=== PATIENT | female | born 1955 | race Caucasian/White ===

== ENCOUNTER → 2018-09-04 17:51 | Emergency (ER) | payer MEDICARE, MEDICAID ==
[~2018-09-04 17:51] MED LIST: Ketorolac INJ* 30 MG/ML 1 ML VIAL IV PUSH ONE; Morphine 4 MG/ML VIAL (1 ml) 4 MG/ML VIAL IV ONE; NS 0.9% 1000 ML** 1,000 ML IV ONE; Ondansetron INJ* 2 MG/ML VIAL IV ONE
--- NOTE | 2018-09-04 19:19 | ED ---
Abdominal Pain/Female - HPI Summary HPI Summary: The patient is a 62 y/o F presenting to [facility] with a chief complaint of gradual onset right-sided abd pain that started three days ago but worsened today. She reports that she has been trying home treatments, and when the pain worsened today, she was goign to go to her PCP. However, the pain was so severe that she had difficulty moving because movement has aggravated the pain more than at rest , where the severity will go from 3/10 to 8/10. The sharp pain is located primarily in the right flank, but it also radiates to the right low back. The back pain started today. She denies nausea and vomiting. She denies trauma. No abd hx. Current light everyday smoker, occasional EtOH., no substance use. - History of Current Complaint Chief Complaint: Radha Stated Complaint: "RIGHT SIDED RIB PAIN PER PT" Time Seen by Provider: 09/04/18 18:58 Hx Obtained From: Patient ?: No Onset/Duration: Gradual Onset, Lasting Days - three, Worse Since - today Timing: Days Severity Initially: Mild Severity Currently: Moderate Pain Intensity: 8 Pain Scale Used: 0-10 Numeric Location: Flank - right Radiates: Yes Radiates to: Back - right low Character: Sharp Aggravating Factor(s): Movement Alleviating Factor(s): Other: - rest Associated Signs and Symptoms: Positive: Back Pain - low right. Negative: Nausea, Vomiting Allergies/Adverse Reactions: Allergies Allergy/AdvReac Type Severity Reaction Status Date / Time No Known Allergies Allergy Verified 09/04/18 17:56 Home Medications: Home Medications Methylphenidate TAB* 10 mg PO DAILY 09/04/18 [History Confirmed 09/04/18] PARoxetine HCL TAB* 5 mg PO DAILY 09/04/18 [History Confirmed 09/04/18] PMH/Surg Hx/FS Hx/Imm Hx Endocrine/Hematology History: Denies: Hx Diabetes Cardiovascular History: Reports: Hx Angina - when having physical and psychological stress. Denies: Hx Hypercholesterolemia, Hx Hypertension, Hx Myocardial Infarction, Hx Pacemaker/ICD, Hx Valvular Heart Disease Respiratory History: Reports: Hx Pneumonia Denies: Hx Asthma, Hx Chronic Obstructive Pulmonary Disease (COPD) Musculoskeletal History: Reports: Hx Arthritis, Hx Back Problems, Other Musculoskeletal History - rotator cuff Denies: Hx Rheumatoid Arthritis, Hx Fibromyalgia, Hx Gout, Hx Osteoporosis Sensory History: Reports: Hx Contacts or Glasses Denies: Hx Glaucoma, Hx Macular Degeneration, Hx Hearing Aid Opthamlomology History: Reports: Hx Contacts or Glasses Denies: Hx Glaucoma, Hx Macular Degeneration Psychiatric History: Reports: Hx Anxiety, Hx Depression, Hx Post Traumatic Stress Disorder, Hx Inpatient Treatment, Hx Suicide Attempt Denies: Hx Eating Disorder, Hx Panic Disorder, Hx of Violent Episodes Against Others - Surgical History Surgery Procedure, Year, and Place: BILATERAL SHOULDER SURGERY,TUBAL, herniated disc repair 7 years ago Hx Anesthesia Reactions: No Infectious Disease History: No Infectious Disease History: Denies: Hx Clostridium Difficile, Hx Hepatitis, Hx Human Immunodeficiency Virus (HIV), Hx Shingles, Hx Tuberculosis, Traveled Outside the [place] in Last 30 Days - Family History Known Family History: Negative: Hypertension, Diabetes - Social History Lives: With Family Alcohol Use: Occasionally Hx Substance Use: No Substance Use Type: Reports: None Hx Tobacco Use: Yes Smoking Status (MU): Light Every Day Tobacco Smoker Type: Cigarettes Do You Chew or Dip Tobacco: No Have You Chewed or Dipped Tobacco in the LAST YEAR: No Have You Smoked in the Last Year: No Review of Systems Negative: Vomiting, Nausea Positive: flank pain - right Positive: Other - right low back pain radiating from abd All Other Systems Reviewed And Are Negative: Yes Physical Exam - Summary Physical Exam Summary: VITAL SIGNS: Reviewed. GENERAL: Patient is a well-developed and nourished female who is lying comfortable in the stretcher. Patient is not in any acute respiratory distress. HEAD AND FACE: Normocephalic and atraumatic. EYES: PERRLA, EOMI x 2, No injected conjunctiva. EARS: Hearing grossly intact. Ear canals and tympanic membranes are WNL. MOUTH: Oropharynx within normal limits. NECK: Supple, trachea is midline, no adenopathy, no JVD. CHEST: Symmetric, no tenderness at palpation LUNGS: Clear to auscultation bilaterally. No wheezing or crackles. CVS: RRR, S1 and S2 present, no murmurs or gallops appreciated. ABDOMEN: Soft, right flank pain and right costovertebral tenderness. No signs of distention. Positive bowel sounds. No rebound no guarding, and no masses palpated. No abdominal bruit or pulsations. EXTREMITIES: FROM in all major joints, no edema, no cyanosis or clubbing. NEURO: Alert and oriented x 3. No acute neurological deficits. Speech is normal. SKIN: Dry and warm. Triage Information Reviewed: Yes Vital Signs On Initial Exam: Initial Vitals Temp Pulse Resp BP Pulse Ox 98 F 74 18 104/70 98 09/04/18 17:53 09/04/18 17:53 09/04/18 17:53 09/04/18 17:53 09/04/18 17:53 Vital Signs Reviewed: Yes Diagnostics - Vital Signs Vital Signs Temp Pulse Resp BP Pulse Ox 09/04/18 17:53 98 F 74 18 104/70 98 - Laboratory Result Diagrams: 09/04/18 19:19 09/04/18 19:19 Lab Statement: Any lab studies that have been ordered have been reviewed, and results considered in the medical decision making process. - CT Abd/Pel CT CT Interpretation Completed By: Radiologist Summary of CT Findings: No acute abnormality. ED physician has reviewed this report. - EKG 19:13 Cardiac Rate: Bradycardia - 58 BPM EKG Rhythm: Sinus Bradycardia EKG Comparison: No Significant Change - Similar to EKG taken on 10/10/2012 Summary of EKG Findings: No ST elevations Re-Evaluation - Re-Evaluation First Eval Re-Evaluation Time: 21:20 Change: Improved Comment: The patient's pain has improved. We discussed results and discharge home. Abdominal Pain Fem Course/Dx - Course Course Of Treatment: The patient is a 62 y/o F presenting to [facility] with a chief complaint of gradual onset right-sided abd pain that started three days ago but worsened today. She reports that she has been trying home treatments, and when the pain worsened today, she was going to go to her PCP. However, the pain was so severe that she had difficulty moving because movement has aggravated the pain more than at rest, where the severity will go from 3/10 to 8/10. The sharp pain is located primarily in the right flank, but it also radiates to the right low back. The back pain started today. She denies nausea and vomiting. She denies trauma. No abd hx. Current light everyday smoker, occasional EtOH., no substance use. Blood test results without any significant abnormality. In the ED course, the patient has significant pain therefore she was given IV fluids, Zofran for nausea, and morphine for pain. Abdominopelvic CT impression: No acute intra-abdominal pathology. In the ED course the patient was given additional dose of morphine and Toradol. After these medications, the patients symptoms have significantly improved. I discussed all the findings and test results with the patient. Patient was instructed to return to the emergency room immediately if any of the symptoms return worsens. Plan of care was discussed with the patient and understands and agrees. All questions were answered at patient satisfaction. There were no further complaints or concerns. Lung exam before discharge: CTA B/L. Good air exchange. No wheezing or crackles heard. CVS: S1 and S2 present. No murmurs appreciated. Patient is alert and oriented x 3. Patient is hemodynamically stable. Patient will be discharged home with follow up PCP in the next 2-3 days. - Diagnoses Provider Diagnoses: Flank pain Discharge - Sign-Out/Discharge Documenting (check all that apply): Patient Departure - Patient will be discharged home. Patient Received Moderate/Deep Sedation with Procedure: No - Discharge Plan Condition: Stable Disposition: HOME Patient Education Materials: Flank Pain (ED) Referrals: Eli Chowdary MD [Primary Care Provider] - 3 Days Additional Instructions: FOLLOW UP WITH YOUR PRIMARY CARE PROVIDER WITHIN ONE WEEK. RETURN TO THE ED FOR ANY WORSENING OR NEW SYMPTOMS. - Billing Disposition and Condition Condition: STABLE Disposition: Home - Attestation Statements Document Initiated by Kia: Yes Documenting Scribe: Elaina Monroy Provider For Whom Kia is Documenting (Include Credential): Dr. Jarad Gomez MD Scribe Attestation: Elaina Larios scribed for Dr. Jarad Gomez MD on 09/04/18 at 2205. Scribe Documentation Reviewed: Yes Provider Attestation: The documentation as recorded by the Elaina melvin accurately reflects the service I personally performed and the decisions made by me, Dr. Jarad Gomez MD Status of Scrgamaliel Document: Viewed
[2018-09-04 19:27] LABS: ABS Basophils 0.1 10^3/ul (0-0.2); ABS Eosinophils 0.3 10^3/ul (0-0.6); ABS Lymphocytes 2.9 10^3/ul (1.0-4.8); ABS Monocytes 0.5 10^3/ul (0-0.8); Hematocrit 41 % (35-47); Lymphocyte % 36.9 %; Mean Corpuscular HGB Conc 35 g/dL (31-36); Mean Corpuscular Hemoglobin 31 pg (27-31); Mean Corpuscular Volume 88 fL (80-97); Mean Platelet Volume 8.8 fL (7.4-10.4); Nucleated Red Blood Cells % 0.1; Platelet Count 217 10^3/uL (150-450); Red Cell Distribution Width 13 % (10.5-15); White Blood Count 7.9 10^3/uL (3.5-10.8)
[2018-09-04 19:45] LABS: ALT 20 U/L (7-52); AST 17 U/L (13-39); Albumin 4.3 g/dL (3.2-5.2); Albumin/Globulin Ratio 1.7 (1-3); Alkaline Phosphatase 61 U/L (34-104); Anion Gap 5 mmol/L (2-11); BUN/Creatinine Ratio 13.8 (8-20); Blood Urea Nitrogen 11 mg/dL (6-24); C Reactive Protein < 1.00 mg/L (<8.01); CO2 Carbon Dioxide 27 mmol/L (22-32); Calcium 9.7 mg/dL (8.6-10.3); Chloride 108 mmol/L (101-111); Creatine Kinase 68 U/L (10-223); EGFR African American 88.2 (>60); EGFR Non-African American 72.9 (>60); Globulin 2.6 g/dL (2-4); Glucose 86 mg/dL (70-100); Potassium 3.9 mmol/L (3.5-5.0); Sodium 140 mmol/L (135-145); Total Protein 6.9 g/dL (6.4-8.9)
[2018-09-04 21:06] LABS: Urine Appearance Clear; Urine Bilirubin Negative (Negative); Urine Blood Negative (Negative); Urine Color Yellow; Urine Glucose Negative (Negative); Urine Ketones Negative (Negative); Urine Nitrite Negative (Negative); Urine Protein Negative (Negative); Urine Specific Gravity 1.006 (1.010-1.030); Urine Urobilinogen Negative (Negative)
[2018-09-04 21:11] VITALS: BP 116/69
== END | disposition home or self-care (01) ==
LOC: ED 17:51
DX: R10.9 Unspecified abdominal pain (principal); R94.31 Abnormal electrocardiogram [ECG] [EKG]; F17.210 Nicotine dependence, cigarettes, uncomplicated; M19.90 Unspecified osteoarthritis, unspecified site; F41.9 Anxiety disorder, unspecified; F32.9 Major depressive disorder, single episode, unspecified
CPT/HCPCS: 36415; 74176; 80053; 81003; 82550; 83605; 83690; 85025; 86140; 93005; 96361; 96374; 96375; 96376; 99283; J1885; J2270; J2405

== ENCOUNTER 2020-03-25 21:46 | Inpatient (IN) ==
[2020-03-26 00:18] LABS: ABS Basophils 0.1 10^3/ul (0-0.2); ABS Eosinophils 0.3 10^3/ul (0-0.6); ABS Lymphocytes 3.4 10^3/ul (1.0-4.8); ABS Monocytes 0.5 10^3/ul (0-0.8); ABS Neutrophils 3.2 10^3/ul (1.5-7.7); Eosinophil % 3.8 %; Hematocrit 38 % (35-47); Hemoglobin 13.5 g/dL (12.0-16.0); Lymphocyte % 45.4 %; Mean Corpuscular HGB Conc 35 g/dL (31-36); Mean Corpuscular Hemoglobin 31 pg (27-31); Mean Corpuscular Volume 89 fL (80-97); Mean Platelet Volume 8.4 fL (7.4-10.4); Platelet Count 245 10^3/uL (150-450); Red Blood Count 4.32 10^6 /uL (3.70-4.87); Red Cell Distribution Width 13 % (10-15); White Blood Count 7.4 10^3/uL (3.5-10.8)
[2020-03-26 00:38] LABS: ALT 16 U/L (7-52); AST 16 U/L (13-39); Albumin/Globulin Ratio 1.5 (1-3); Alkaline Phosphatase 62 U/L (34-104); Anion Gap 4 mmol/L (2-11); BUN/Creatinine Ratio 12.8 (8-20); Blood Urea Nitrogen 10 mg/dL (6-24); CO2 Carbon Dioxide 28 mmol/L (22-32); Calcium 9.2 mg/dL (8.6-10.3); Chloride 107 mmol/L (101-111); EGFR African American 90.3 (>60); EGFR Non-African American 74.6 (>60); Globulin 2.7 g/dL (2-4); Glucose 106 mg/dL (70-100); Potassium 3.4 mmol/L (3.5-5.0); Sodium 139 mmol/L (135-145); Total Protein 6.7 g/dL (6.4-8.9)
[2020-03-26 00:39] LABS: Urine Benzodiazepine Screen None Detected (None Detect); Urine Cannabinoids Screen None Detected (None Detect); Urine Opiates Screen None Detected (None Detect)
[2020-03-26 00:44] LABS: Acetaminophen < 15 mcg/mL; Alcohol, S < 10 mg/dL (<10); Salicylate < 2.50 mg/dL (<30)
[2020-03-26 00:59] LABS: TSH Ultra Thyroid Stim Horm 2.63 mcIU/mL (0.34-5.60)
[2020-03-26] MEDS ORDERED: Al Hydrox/Mg Hydrox/Simet LIQ 30 ML UDC PO PRN (01:17)
[2020-03-26 01:32] LABS: Urine Appearance Clear; Urine Bilirubin Negative (Negative); Urine Blood Negative (Negative); Urine Color Straw; Urine Glucose Negative (Negative); Urine Ketones Negative (Negative); Urine Nitrite Negative (Negative); Urine Protein Negative (Negative); Urine Specific Gravity 1.003 (1.010-1.030); Urine Urobilinogen Negative (Negative)
[2020-03-26 01:45] LABS: Urine Bacteria Absent (Absent); Urine Red Blood Cell Absent (Absent); Urine White Blood Cell Trace(0-5/hpf) (Absent)
[2020-03-26] MEDS: Nicotine PATCH 14 MG/24 HR PATCH TRANSDERM SCH (09:13)
[2020-03-26] MEDS: Vitamin THERAPEUTIC TAB PO SCH (09:15)
[2020-03-26] MEDS: oxyCODONE/Acetamin 5/325 mg TAB PO PRN (18:56)
[2020-03-27] MEDS: Cholecalciferol (VIT D3) 1,000 unit TAB PO SCH (07:48)
[2020-03-27] MEDS: Nicotine PATCH 14 MG/24 HR PATCH TRANSDERM SCH (07:49)
[2020-03-27] MEDS: Vitamin THERAPEUTIC TAB PO SCH (07:49)
[2020-03-27] MEDS: oxyCODONE/Acetamin 5/325 mg TAB PO PRN ×2 (08:13→18:37)
[2020-03-28] MEDS: oxyCODONE/Acetamin 5/325 mg TAB PO PRN ×2 (07:24→15:25)
[2020-03-28] MEDS: Nicotine PATCH 14 MG/24 HR PATCH TRANSDERM SCH (08:22)
[2020-03-28] MEDS: Cholecalciferol (VIT D3) 1,000 unit TAB PO SCH (08:24)
[2020-03-28] MEDS: Vitamin THERAPEUTIC TAB PO SCH (08:25)
[2020-03-29 08:21] VITALS: BP 119/59
[2020-03-29] MEDS: Cholecalciferol (VIT D3) 1,000 unit TAB PO SCH (08:49)
[2020-03-29] MEDS: Vitamin THERAPEUTIC TAB PO SCH (08:49)
[2020-03-29] MEDS: Nicotine PATCH 14 MG/24 HR PATCH TRANSDERM SCH (08:50)
[2020-03-29] MEDS: oxyCODONE/Acetamin 5/325 mg TAB PO PRN (10:01)
== END 2020-03-29 12:48 | disposition home or self-care (01) | DRG 885 ==
LOC: ED 21:46 → BSU 23:28
PROVIDERS: ADMIT Psychiatry & Neurology Psychiatry; ATTEND Psychiatry & Neurology Psychiatry